=== PATIENT | male | born 1960 | race Caucasian/White ===

== ENCOUNTER 2020-11-18 18:07 | Inpatient (IN) ==
[2020-11-18 18:34] LABS: ABS Lymphocytes 0.9 10^3/ul (1.0-4.8); ABS Monocytes 0.3 10^3/ul (0-0.8); ABS Neutrophils 3.8 10^3/ul (1.5-7.7); Hematocrit 38 % (42-52); Hemoglobin 13.2 g/dL (14.0-18.0); Lymphocyte % 18.3 %; Mean Corpuscular HGB Conc 35 g/dL (31-36); Mean Corpuscular Hemoglobin 28 pg (27-31); Mean Corpuscular Volume 81 fL (80-94); Mean Platelet Volume 6.5 fL (7.4-10.4); Platelet Count 227 10^3/uL (150-450); Red Blood Count 4.66 10^6 /uL (4.18-5.48); Red Cell Distribution Width 14 % (10-15); White Blood Count 5.1 10^3/uL (3.5-10.8)
[2020-11-18 18:51] LABS: ALT 36 U/L (7-52); AST 96 U/L (13-39); Albumin 3.7 g/dL (3.2-5.2); Albumin/Globulin Ratio 1.3 (1-3); Alkaline Phosphatase 53 U/L (35-149); Anion Gap 10 mmol/L (2-11); Blood Urea Nitrogen 21 mg/dL (6-24); CO2 Carbon Dioxide 25 mmol/L (22-32); Calcium 8.2 mg/dL (8.6-10.3); Chloride 97 mmol/L (101-111); EGFR African American 72.4 (>60); EGFR Non-African American 59.8 (>60); Globulin 2.9 g/dL (2-4); Glucose 125 mg/dL (70-100); Magnesium 1.7 mg/dL (1.9-2.7); Potassium 3.8 mmol/L (3.5-5.0); Sodium 132 mmol/L (135-145); Total Protein 6.6 g/dL (6.4-8.9)
[2020-11-18 18:59] LABS: Activated Partial Thrombo Time 28.7 seconds (26.0-38.0); INR 1.16 (0.86-1.15)
[2020-11-18 19:00] LABS: Troponin I 0.03 ng/mL (<0.03)
[2020-11-18 20:13] LABS: Hepatitis C Antibody Negative (Negative)
[2020-11-18] MEDS ORDERED: methylPREDNISolone 125 mg 2 ML VIAL IV ONE (20:18)
[2020-11-18 20:42] LABS: PCO2 Arterial 36 mmHg (35-45); PO2 Arterial 80 mmHg (80-100)
[2020-11-18] MEDS ORDERED: Ondansetron 4 mg VIAL 2 MG/ML 2 ml VIAL IV PRN (20:53)
[2020-11-18] MEDS ORDERED: Magnesium Sulfate 2 gm BAG 2 GM/50 ML BAG IVPB ONE (20:53)
[2020-11-18 22:07] LABS: Influenza A Molecular Negative (Negative); Influenza B Molecular Negative (Negative)
[2020-11-18] MEDS ORDERED: Iodixanol (CONTRAST) 320 MG/ML 100 ML SDV IV ONE (22:39)
[2020-11-18] MEDS: Mometasone/Formoter 100/5 MDI INH SCH (23:24)
[2020-11-18] MEDS: Heparin 5000 UNITS/ML 1 mL VIAL SUBCUT SCH (23:28)
[2020-11-18] MEDS: Azithromycin 500 mg/250 ml NS 500 MG/250 ML BAG IVPB SCH (23:28)
[2020-11-18] MEDS: cefTRIAXone 1 gm/50 mL NS BAG 1 GM/50 ML BAG IVPB SCH (23:28)
[2020-11-18] MEDS: methylPREDNISolone 125 mg 2 ML VIAL IV SCH (23:28)
[2020-11-19 01:32] LABS: Troponin I 0.03 ng/mL (<0.03)
[2020-11-19 03:39] LABS: Anion Gap 12 mmol/L (2-11); Blood Urea Nitrogen 21 mg/dL (6-24); CO2 Carbon Dioxide 21 mmol/L (22-32); Chloride 98 mmol/L (101-111); EGFR Non-African American 70.3 (>60); Glucose 204 mg/dL (70-100); Potassium 3.5 mmol/L (3.5-5.0); Sodium 131 mmol/L (135-145)
[2020-11-19 03:42] LABS: Troponin I 0.03 ng/mL (<0.03)
[2020-11-19] MEDS: Heparin 5000 UNITS/ML 1 mL VIAL SUBCUT SCH ×2 (05:32→12:28)
[2020-11-19] MEDS: methylPREDNISolone 125 mg 2 ML VIAL IV SCH ×3 (05:33→21:01)
[2020-11-19 06:11] LABS: ABS Lymphocytes 0.5 10^3/ul (1.0-4.8); ABS Monocytes 0.2 10^3/ul (0-0.8); ABS Neutrophils 3.8 10^3/ul (1.5-7.7); Hematocrit 38 % (42-52); Hemoglobin 12.9 g/dL (14.0-18.0); Mean Corpuscular HGB Conc 35 g/dL (31-36); Mean Corpuscular Hemoglobin 28 pg (27-31); Mean Corpuscular Volume 82 fL (80-94); Mean Platelet Volume 6.7 fL (7.4-10.4); Platelet Count 210 10^3/uL (150-450); Red Blood Count 4.58 10^6 /uL (4.18-5.48); Red Cell Distribution Width 14 % (10-15); White Blood Count 4.5 10^3/uL (3.5-10.8)
[2020-11-19 06:30] LABS: INR 1.12 (0.86-1.15)
[2020-11-19 06:36] LABS: Troponin I 0.03 ng/mL (<0.03)
[2020-11-19 07:01] LABS: Urine Appearance Cloudy; Urine Bilirubin Negative (Negative); Urine Blood Negative (Negative); Urine Color Amber; Urine Glucose Negative (Negative); Urine Ketones Trace (Negative); Urine Nitrite Negative (Negative); Urine Protein 2+(100 mg/dL) (Negative); Urine Specific Gravity 1.034 (1.002-1.030); Urine Urobilinogen Negative (Negative)
[2020-11-19 07:23] LABS: Urine Bacteria Absent (Absent); Urine Red Blood Cell Trace(0-2/hpf) (Absent); Urine Squamous Epithelial Cell Present (Absent); Urine White Blood Cell 1+(6-10/hpf) (Absent)
[2020-11-19 08:21] LABS: Magnesium 1.9 mg/dL (1.9-2.7); Phosphorus 3.8 mg/dL (2.5-5.0)
[2020-11-19] MEDS ORDERED: Buffered Lidocaine 1% SYRIN 1 ml INTRADERM ONE (08:45)
[2020-11-19] MEDS: KCL 20 MEQ/100 ML IVPREMIX 20 MEQ/100 ML BAG IV SCH ×2 (09:09→12:13)
[2020-11-19 09:28] LABS: Glucose 203 mg/dL (70-100)
[2020-11-19] MEDS: Mometasone/Formoter 100/5 MDI INH SCH ×2 (10:54→19:37)
[2020-11-19 15:09] LABS: HIV 4th Generation Nonreactive (Nonreactive)
[2020-11-19] MEDS ORDERED: Remdesivir 100 mg Vial 200 MG in NS 0.9% 250 ml 210 ML IV ONE (16:19)
[2020-11-19] MEDS ORDERED: Tocilizumab 200 MG/10 ML 10 ml VIAL IVPB ONE (16:19)
[2020-11-19] MEDS ORDERED: Tocilizumab** 800 MG in NS 0.9% 100 ml BAG 60 ML IVPB ONE (16:30)
[2020-11-19] MEDS: Enoxaparin 80 MG/0.8 ML SYR SUBCUT SCH (17:34)
[2020-11-19 18:52] LABS: Albumin 3.4 g/dL (3.2-5.2); Albumin/Globulin Ratio 1.2 (1-3); Calcium 8.4 mg/dL (8.6-10.3); EGFR African American 103.8 (>60); EGFR Non-African American 85.8 (>60); Globulin 2.8 g/dL (2-4); Potassium 4.2 mmol/L (3.5-5.0); Total Bilirubin 0.5 mg/dL (0.2-1.0); Total Protein 6.2 g/dL (6.4-8.9)
[2020-11-19 18:56] LABS: INR 1.08 (0.86-1.15)
[2020-11-19] MEDS: cefTRIAXone 1 gm/50 mL NS BAG 1 GM/50 ML BAG IVPB SCH (19:58)
[2020-11-19] MEDS: Azithromycin 500 mg/250 ml NS 500 MG/250 ML BAG IVPB SCH (19:58)
[2020-11-19 22:16] LABS: Urine Appearance Cloudy; Urine Bilirubin Negative (Negative); Urine Blood Negative (Negative); Urine Color Yellow; Urine Glucose Negative (Negative); Urine Ketones Trace (Negative); Urine Nitrite Negative (Negative); Urine Protein 2+(100 mg/dL) (Negative); Urine Specific Gravity 1.032 (1.002-1.030); Urine Urobilinogen Negative (Negative)
[2020-11-19 22:21] LABS: Urine Bacteria Absent (Absent); Urine Red Blood Cell Trace(0-2/hpf) (Absent); Urine Squamous Epithelial Cell Present (Absent); Urine White Blood Cell Trace(0-5/hpf) (Absent)
[2020-11-20] MEDS: Enoxaparin 80 MG/0.8 ML SYR SUBCUT SCH ×2 (06:02→17:57)
[2020-11-20] MEDS: methylPREDNISolone 125 mg 2 ML VIAL IV SCH ×3 (06:03→21:38)
[2020-11-20 06:25] LABS: ABS Lymphocytes 0.8 10^3/ul (1.0-4.8); ABS Monocytes 0.6 10^3/ul (0-0.8); ABS Neutrophils 7.3 10^3/ul (1.5-7.7); Hematocrit 38 % (42-52); Hemoglobin 13.1 g/dL (14.0-18.0); Mean Corpuscular HGB Conc 34 g/dL (31-36); Mean Corpuscular Hemoglobin 28 pg (27-31); Mean Corpuscular Volume 83 fL (80-94); Mean Platelet Volume 6.8 fL (7.4-10.4); Nucleated Red Blood Cells % 0.1; Platelet Count 336 10^3/uL (150-450); Red Blood Count 4.61 10^6 /uL (4.18-5.48); Red Cell Distribution Width 14 % (10-15); White Blood Count 8.7 10^3/uL (3.5-10.8)
[2020-11-20 06:34] LABS: INR 1.11 (0.86-1.15)
[2020-11-20 06:44] LABS: Albumin 3.3 g/dL (3.2-5.2); Albumin/Globulin Ratio 1.1 (1-3); Calcium 8.2 mg/dL (8.6-10.3); EGFR African American 102.5 (>60); EGFR Non-African American 84.7 (>60); Magnesium 2.3 mg/dL (1.9-2.7); Phosphorus 3.2 mg/dL (2.5-5.0); Potassium 3.9 mmol/L (3.5-5.0); Total Bilirubin 0.4 mg/dL (0.2-1.0); Total Protein 6.3 g/dL (6.4-8.9)
[2020-11-20] MEDS: Mometasone/Formoter 100/5 MDI INH SCH ×2 (07:48→20:27)
[2020-11-20] MEDS: Albuterol HFA INHALER 8 gm MDI INH PRN (07:48)
[2020-11-20] MEDS: cefTRIAXone 1 gm/50 mL NS BAG 1 GM/50 ML BAG IVPB SCH (20:45)
[2020-11-20] MEDS: Azithromycin 500 mg/250 ml NS 500 MG/250 ML BAG IVPB SCH (20:45)
[2020-11-20] MEDS: Remdesivir 100 mg Vial 100 MG in NS 0.9% 250 ml 230 ML IV SCH (21:38)
[2020-11-21 04:45] LABS: ABS Lymphocytes 0.6 10^3/ul (1.0-4.8); ABS Monocytes 0.6 10^3/ul (0-0.8); ABS Neutrophils 7.7 10^3/ul (1.5-7.7); Hematocrit 37 % (42-52); Hemoglobin 12.5 g/dL (14.0-18.0); Lymphocyte % 7.1 %; Mean Corpuscular HGB Conc 34 g/dL (31-36); Mean Corpuscular Hemoglobin 28 pg (27-31); Mean Corpuscular Volume 84 fL (80-94); Mean Platelet Volume 6.4 fL (7.4-10.4); Nucleated Red Blood Cells % 0.1; Platelet Count 329 10^3/uL (150-450); Red Cell Distribution Width 14 % (10-15)
[2020-11-21 04:52] LABS: INR 1.2 (0.86-1.15)
[2020-11-21 04:59] LABS: Albumin 3.1 g/dL (3.2-5.2); Albumin/Globulin Ratio 1.1 (1-3); Calcium 8.1 mg/dL (8.6-10.3); EGFR African American 96.4 (>60); EGFR Non-African American 79.6 (>60); Globulin 2.7 g/dL (2-4); Magnesium 2.4 mg/dL (1.9-2.7); Phosphorus 2.8 mg/dL (2.5-5.0); Total Bilirubin 0.5 mg/dL (0.2-1.0); Total Protein 5.8 g/dL (6.4-8.9)
[2020-11-21] MEDS: Enoxaparin 80 MG/0.8 ML SYR SUBCUT SCH ×2 (05:50→17:12)
[2020-11-21] MEDS: methylPREDNISolone 125 mg 2 ML VIAL IV SCH ×3 (05:51→21:35)
[2020-11-21] MEDS: Mometasone/Formoter 100/5 MDI INH SCH (07:19)
[2020-11-21] MEDS ORDERED: Furosemide 40 mg/4 ml IV VIAL IV ONE (08:31)
[2020-11-21] MEDS ORDERED: Lorazepam PYXIS KEY PRN (08:51)
[2020-11-21] MEDS ORDERED: LORazepam 2 mg VIAL 1 ml IV PUSH ONE (08:52)
[2020-11-21] MEDS: Azithromycin 500 mg/250 ml NS 500 MG/250 ML BAG IVPB SCH (21:30)
[2020-11-21] MEDS: cefTRIAXone 1 gm/50 mL NS BAG 1 GM/50 ML BAG IVPB SCH (21:30)
[2020-11-21] MEDS: Remdesivir 100 mg Vial 100 MG in NS 0.9% 250 ml 230 ML IV SCH (22:53)
[2020-11-22] MEDS: Enoxaparin 80 MG/0.8 ML SYR SUBCUT SCH ×2 (06:15→16:19)
[2020-11-22] MEDS: methylPREDNISolone 125 mg 2 ML VIAL IV SCH (06:15)
[2020-11-22 06:48] LABS: ABS Lymphocytes 0.5 10^3/ul (1.0-4.8); ABS Monocytes 0.7 10^3/ul (0-0.8); Hematocrit 37 % (42-52); Hemoglobin 12.8 g/dL (14.0-18.0); Lymphocyte % 5.6 %; Mean Corpuscular HGB Conc 35 g/dL (31-36); Mean Corpuscular Hemoglobin 29 pg (27-31); Mean Corpuscular Volume 83 fL (80-94); Mean Platelet Volume 6.5 fL (7.4-10.4); Platelet Count 374 10^3/uL (150-450); Red Blood Count 4.47 10^6 /uL (4.18-5.48); Red Cell Distribution Width 14 % (10-15); White Blood Count 9.2 10^3/uL (3.5-10.8)
[2020-11-22 07:04] LABS: INR 1.25 (0.86-1.15)
[2020-11-22 07:08] LABS: Albumin 3.1 g/dL (3.2-5.2); Albumin/Globulin Ratio 1.2 (1-3); Calcium 8.1 mg/dL (8.6-10.3); EGFR African American 87.9 (>60); EGFR Non-African American 72.6 (>60); Globulin 2.6 g/dL (2-4); Magnesium 2.4 mg/dL (1.9-2.7); Phosphorus 3.3 mg/dL (2.5-5.0); Potassium 3.7 mmol/L (3.5-5.0); Total Bilirubin 0.5 mg/dL (0.2-1.0); Total Protein 5.7 g/dL (6.4-8.9)
[2020-11-22] MEDS ORDERED: KCL 20 MEQ/100 ML IVPREMIX 20 MEQ/100 ML BAG ONE (08:38)
[2020-11-22] MEDS: KCL 20 MEQ/100 ML IVPREMIX 20 MEQ/100 ML BAG IV SCH ×2 (08:40→10:45)
[2020-11-22] MEDS: Fluticasone NASAL SPRAY 50MCG 16 gm SPRAY BTL BOTH NARES SCH (08:53)
[2020-11-22] MEDS: Mometasone/Formoter 100/5 MDI INH SCH ×3 (08:53→19:46)
[2020-11-22] MEDS: Albuterol HFA INHALER 8 gm MDI INH PRN (09:06)
[2020-11-22] MEDS: methylPREDNISolone SOD 40 mg/ml 1 ml VIAL IV SCH ×2 (14:00→22:20)
[2020-11-22] MEDS: cefTRIAXone 1 gm/50 mL NS BAG 1 GM/50 ML BAG IVPB SCH (20:03)
[2020-11-22] MEDS: Azithromycin 500 mg/250 ml NS 500 MG/250 ML BAG IVPB SCH (20:03)
[2020-11-22] MEDS ORDERED: Furosemide 40 mg/4 ml IV VIAL IV SLOW PU ONE (21:29)
[2020-11-22] MEDS: Remdesivir 100 mg Vial 100 MG in NS 0.9% 250 ml 230 ML IV SCH (21:31)
[2020-11-23] MEDS: Enoxaparin 80 MG/0.8 ML SYR SUBCUT SCH ×2 (05:50→17:06)
[2020-11-23] MEDS: methylPREDNISolone SOD 40 mg/ml 1 ml VIAL IV SCH ×3 (05:50→21:30)
[2020-11-23 06:15] LABS: ABS Lymphocytes 0.5 10^3/ul (1.0-4.8); ABS Monocytes 0.6 10^3/ul (0-0.8); ABS Neutrophils 8.1 10^3/ul (1.5-7.7); Hematocrit 38 % (42-52); Hemoglobin 12.8 g/dL (14.0-18.0); Mean Corpuscular HGB Conc 34 g/dL (31-36); Mean Corpuscular Hemoglobin 28 pg (27-31); Mean Corpuscular Volume 83 fL (80-94); Mean Platelet Volume 6.6 fL (7.4-10.4); Platelet Count 354 10^3/uL (150-450); Red Blood Count 4.55 10^6 /uL (4.18-5.48); Red Cell Distribution Width 14 % (10-15); White Blood Count 9.2 10^3/uL (3.5-10.8)
[2020-11-23 06:17] LABS: INR 1.25 (0.86-1.15)
[2020-11-23 06:27] LABS: Albumin 3.1 g/dL (3.2-5.2); Magnesium 2.5 mg/dL (1.9-2.7); Potassium 4.3 mmol/L (3.5-5.0); Total Bilirubin 0.5 mg/dL (0.2-1.0)
[2020-11-23 06:33] LABS: Albumin/Globulin Ratio 1.4 (1-3); EGFR African American 83.2 (>60); EGFR Non-African American 68.8 (>60); Globulin 2.2 g/dL (2-4); Phosphorus 3.7 mg/dL (2.5-5.0); Total Protein 5.3 g/dL (6.4-8.9)
[2020-11-23] MEDS: Fluticasone NASAL SPRAY 50MCG 16 gm SPRAY BTL BOTH NARES SCH (08:30)
[2020-11-23] MEDS: Mometasone/Formoter 100/5 MDI INH SCH ×2 (08:30→19:32)
[2020-11-23] MEDS: cefTRIAXone 1 gm/50 mL NS BAG 1 GM/50 ML BAG IVPB SCH (19:50)
[2020-11-23] MEDS: Azithromycin 500 mg/250 ml NS 500 MG/250 ML BAG IVPB SCH (21:30)
[2020-11-24] MEDS: Enoxaparin 80 MG/0.8 ML SYR SUBCUT SCH ×2 (05:52→15:16)
[2020-11-24] MEDS: methylPREDNISolone SOD 40 mg/ml 1 ml VIAL IV SCH ×3 (05:52→22:49)
[2020-11-24 06:21] LABS: ABS Eosinophils 0.1 10^3/ul (0-0.6); ABS Lymphocytes 0.5 10^3/ul (1.0-4.8); ABS Monocytes 0.5 10^3/ul (0-0.8); Eosinophil % 0.7 %; Hematocrit 39 % (42-52); Hemoglobin 12.9 g/dL (14.0-18.0); Lymphocyte % 4.9 %; Mean Corpuscular HGB Conc 34 g/dL (31-36); Mean Corpuscular Hemoglobin 28 pg (27-31); Mean Corpuscular Volume 84 fL (80-94); Mean Platelet Volume 6.5 fL (7.4-10.4); Nucleated Red Blood Cells % 0.1; Platelet Count 354 10^3/uL (150-450); Red Blood Count 4.57 10^6 /uL (4.18-5.48); Red Cell Distribution Width 14 % (10-15)
[2020-11-24 06:53] LABS: EGFR African American 89.8 (>60); EGFR Non-African American 74.2 (>60); Potassium 4.3 mmol/L (3.5-5.0)
[2020-11-24] MEDS: Fluticasone NASAL SPRAY 50MCG 16 gm SPRAY BTL BOTH NARES SCH (08:14)
[2020-11-24] MEDS: Mometasone/Formoter 100/5 MDI INH SCH ×2 (08:23→20:41)
[2020-11-24 10:22] LABS: PCO2 Arterial 42 mmHg (35-45); PO2 Arterial 70 mmHg (80-100)
[2020-11-24] MEDS ORDERED: Furosemide 40 mg/4 ml IV VIAL IV SLOW PU ONE (15:23)
[2020-11-24] MEDS: cefTRIAXone 1 gm/50 mL NS BAG 1 GM/50 ML BAG IVPB SCH (20:20)
[2020-11-24] MEDS: Azithromycin 500 mg/250 ml NS 500 MG/250 ML BAG IVPB SCH (21:25)
[2020-11-24] MEDS: Saline FLUSH-CENTRAL 10 ML SYRINGE CENT\\PICC SCH (22:49)
[2020-11-25] MEDS: methylPREDNISolone SOD 40 mg/ml 1 ml VIAL IV SCH ×4 (06:19→22:29)
[2020-11-25] MEDS: Enoxaparin 80 MG/0.8 ML SYR SUBCUT SCH ×2 (06:19→16:09)
[2020-11-25] MEDS: Mometasone/Formoter 100/5 MDI INH SCH (10:00)
[2020-11-25] MEDS: Fluticasone NASAL SPRAY 50MCG 16 gm SPRAY BTL BOTH NARES SCH (11:54)
[2020-11-25] MEDS: Saline FLUSH-CENTRAL 10 ML SYRINGE CENT\\PICC SCH ×2 (11:54→23:34)
[2020-11-25] MEDS ORDERED: Rocuronium 50 mg VIAL 10 mg/ml 5 ml VIAL (50 mg) ONE ×2 (12:26→14:12)
[2020-11-25] MEDS ORDERED: Succinylcholine 200 mg VIAL 20 mg/ml 10 ml VIAL (200 mg) ONE (12:26)
[2020-11-25] MEDS ORDERED: Etomidate 40 mg/20 ml (2 MG/ML) 20 ml VIAL (40 mg) ONE (12:50)
[2020-11-25] MEDS ORDERED: Propofol 10 MG/ML 20 ML BTL ONE (12:50)
[2020-11-25] MEDS ORDERED: Propofol 10 mg/ml 100 ML BTL 100 ML ONE (13:01)
[2020-11-25] MEDS: Propofol 10 mg/ml 100 ML BTL 100 ML IV SCH ×7 (13:10→23:00)
[2020-11-25] MEDS ORDERED: fentaNYL 100 mcg/2 ml 50 MCG/ML VIAL ONE (13:35)
[2020-11-25] MEDS ORDERED: fentaNYL 100 mcg/2 ml 50 MCG/ML VIAL IV SLOW PU ONE ×2 (13:37→13:43)
[2020-11-25] MEDS ORDERED: Lorazepam PYXIS KEY ONE (13:47)
[2020-11-25] MEDS ORDERED: LORazepam 2 mg VIAL 1 ml ONE ×2 (13:47→14:10)
[2020-11-25] MEDS ORDERED: LORazepam 2 mg VIAL 1 ml IV PUSH ONE ×2 (13:52→16:27)
[2020-11-25] MEDS: fentaNYL INFUSION 50 mcg/mL VL 2,500 MCG/50 ML VIAL IV SCH ×2 (13:58→19:40)
[2020-11-25] MEDS: Norepinephrine 16MCG/ML IVPRE 4,000 MCG/250 ML BAG IV SCH ×2 (14:20→20:34)
[2020-11-25] MEDS: [UNRECOGNIZED DRUG - OTHER] PO SCH (15:58)
[2020-11-25] MEDS: Chlorhexidine MOUTHWASH 0.12% 15 ML UDC TOPICAL SCH ×3 (15:58→22:29)
[2020-11-25 16:15] LABS: PCO2 Arterial 66 mmHg (35-45); PO2 Arterial 89 mmHg (80-100)
[2020-11-25] MEDS ORDERED: Rocuronium 50 mg VIAL 10 mg/ml 5 ml VIAL (50 mg) IV ONE (16:27)
[2020-11-25 20:03] LABS: PCO2 Arterial 62 mmHg (35-45); PO2 Arterial 113 mmHg (80-100)
[2020-11-25] MEDS: cefTRIAXone 1 gm/50 mL NS BAG 1 GM/50 ML BAG IVPB SCH (20:04)
[2020-11-25] MEDS: Pantoprazole VIAL 40 MG VIAL IV SCH (20:44)
[2020-11-25] MEDS: Azithromycin 500 mg/250 ml NS 500 MG/250 ML BAG IVPB SCH (21:11)
[2020-11-25] MEDS ORDERED: Cisatracurium 100 MG in NS 0.9% 250 ml 200 ML IV SCH (23:00)
[2020-11-26] MEDS: Cisatracurium 100 MG in NS 0.9% 250 ml 200 ML IV SCH ×2 (00:14→09:47)
[2020-11-26] MEDS: Propofol 10 mg/ml 100 ML BTL 100 ML IV SCH ×15 (01:27→23:45)
[2020-11-26] MEDS: [UNRECOGNIZED DRUG - OTHER] PO SCH ×2 (03:32→15:00)
[2020-11-26] MEDS: Chlorhexidine MOUTHWASH 0.12% 15 ML UDC TOPICAL SCH ×7 (03:32→21:53)
[2020-11-26 04:00] LABS: PO2 Arterial 128 mmHg (80-100)
[2020-11-26 04:03] LABS: PCO2 Arterial 94 mmHg (35-45)
[2020-11-26] MEDS ORDERED: Rocuronium 50 mg VIAL 10 mg/ml 5 ml VIAL (50 mg) IV ONE (04:54)
[2020-11-26] MEDS: Enoxaparin 80 MG/0.8 ML SYR SUBCUT SCH ×2 (05:04→17:50)
[2020-11-26] MEDS: methylPREDNISolone SOD 40 mg/ml 1 ml VIAL IV SCH ×3 (05:07→20:23)
[2020-11-26 05:18] LABS: Hematocrit 40 % (42-52); Hemoglobin 13.6 g/dL (14.0-18.0); Mean Corpuscular HGB Conc 34 g/dL (31-36); Mean Corpuscular Hemoglobin 29 pg (27-31); Mean Corpuscular Volume 85 fL (80-94); Mean Platelet Volume 6.6 fL (7.4-10.4); Platelet Count 348 10^3/uL (150-450); Red Blood Count 4.73 10^6 /uL (4.18-5.48); Red Cell Distribution Width 14 % (10-15); White Blood Count 16.7 10^3/uL (3.5-10.8)
[2020-11-26 05:38] LABS: Calcium 7.7 mg/dL (8.6-10.3); EGFR Non-African American 65.3 (>60); Phosphorus 6.5 mg/dL (2.5-5.0)
[2020-11-26 05:44] LABS: Myoglobin 102.5 ng/mL (17.4-105.7)
[2020-11-26 06:37] LABS: Magnesium 2.7 mg/dL (1.9-2.7); Potassium 5.1 mmol/L (3.5-5.0)
[2020-11-26] MEDS: fentaNYL INFUSION 50 mcg/mL VL 2,500 MCG/50 ML VIAL IV SCH ×2 (07:01→20:47)
[2020-11-26] MEDS: Fluticasone NASAL SPRAY 50MCG 16 gm SPRAY BTL BOTH NARES SCH (07:38)
[2020-11-26] MEDS: Norepinephrine 16MCG/ML IVPRE 4,000 MCG/250 ML BAG IV SCH (08:26)
[2020-11-26] MEDS: Pantoprazole VIAL 40 MG VIAL IV SCH ×2 (08:36→20:23)
[2020-11-26] MEDS: Saline FLUSH-CENTRAL 10 ML SYRINGE CENT\\PICC SCH ×2 (10:36→20:23)
[2020-11-26 11:45] LABS: PO2 Arterial 101 mmHg (80-100)
[2020-11-26 11:50] LABS: PCO2 Arterial 88 mmHg (35-45)
[2020-11-26] MEDS ORDERED: Furosemide 40 mg/4 ml IV VIAL IV SLOW PU ONE (14:13)
[2020-11-26 20:47] LABS: PO2 Arterial 63 mmHg (80-100)
[2020-11-26 20:48] LABS: PCO2 Arterial 74 mmHg (35-45)
[2020-11-26] MEDS: cefTRIAXone 2 GM ADDV.VIAL 2 GM in NS 0.9% 100 ml BAG 100 ML IV SCH (21:05)
[2020-11-26] MEDS ORDERED: Senna TAB 8.6 mg TAB PO PRN (21:25)
[2020-11-26] MEDS ORDERED: Metoclopramide 5 MG/ML VIAL (10 mg) IV SLOW PU ONE (21:27)
[2020-11-27] MEDS: Propofol 10 mg/ml 100 ML BTL 100 ML IV SCH ×8 (01:16→13:08)
[2020-11-27] MEDS: Chlorhexidine MOUTHWASH 0.12% 15 ML UDC TOPICAL SCH ×6 (01:23→20:41)
[2020-11-27] MEDS: [UNRECOGNIZED DRUG - OTHER] PO SCH ×2 (01:24→14:25)
[2020-11-27] MEDS: Cisatracurium 100 MG in NS 0.9% 250 ml 200 ML IV SCH (02:45)
[2020-11-27 05:08] LABS: ABS Basophils 0.2 10^3/ul (0-0.2); ABS Eosinophils 0.1 10^3/ul (0-0.6); ABS Lymphocytes 0.3 10^3/ul (1.0-4.8); ABS Monocytes 0.7 10^3/ul (0-0.8); Eosinophil % 0.7 %; Hematocrit 38 % (42-52); Hemoglobin 12.6 g/dL (14.0-18.0); Lymphocyte % 1.6 %; Mean Corpuscular HGB Conc 33 g/dL (31-36); Mean Corpuscular Hemoglobin 28 pg (27-31); Mean Corpuscular Volume 85 fL (80-94); Mean Platelet Volume 6.8 fL (7.4-10.4); Nucleated Red Blood Cells % 0.2; Platelet Count 310 10^3/uL (150-450); Red Blood Count 4.47 10^6 /uL (4.18-5.48); Red Cell Distribution Width 14 % (10-15); White Blood Count 16.2 10^3/uL (3.5-10.8)
[2020-11-27 05:16] LABS: Activated Partial Thrombo Time 28.6 seconds (26.0-38.0); INR 1.04 (0.86-1.15)
[2020-11-27 05:28] LABS: ALT 25 U/L (7-52); Albumin/Globulin Ratio 1.3 (1-3); Alkaline Phosphatase 66 U/L (35-149); Blood Urea Nitrogen 36 mg/dL (6-24); CO2 Carbon Dioxide 30 mmol/L (22-32); Calcium 7.9 mg/dL (8.6-10.3); Chloride 99 mmol/L (101-111); EGFR African American 49.2 (>60); EGFR Non-African American 40.6 (>60); Globulin 2.3 g/dL (2-4); Glucose 265 mg/dL (70-100); Phosphorus 5.7 mg/dL (2.5-5.0); Sodium 135 mmol/L (135-145); Total Protein 5.3 g/dL (6.4-8.9)
[2020-11-27 06:01] LABS: Anion Gap 6 mmol/L (2-11)
[2020-11-27] MEDS: Enoxaparin 80 MG/0.8 ML SYR SUBCUT SCH ×2 (06:59→17:22)
[2020-11-27] MEDS ORDERED: Methylnaltrexone SQ (NF) 12 MG/0.6 ML VIAL SUBCUT ONE (08:00)
[2020-11-27 09:04] LABS: Myoglobin 164.9 ng/mL (17.4-105.7)
[2020-11-27] MEDS: methylPREDNISolone SOD 40 mg/ml 1 ml VIAL IV SCH ×2 (09:23→20:17)
[2020-11-27] MEDS: Polyethylene Glycol 3350 17 GM PACKET PO SCH (09:23)
[2020-11-27] MEDS ORDERED: Sodium Bicarbonate 8.4% SYR 50 ml SYRINGE ONE ×2 (09:36→17:41)
[2020-11-27] MEDS: Saline FLUSH-CENTRAL 10 ML SYRINGE CENT\\PICC SCH (09:45)
[2020-11-27] MEDS: Pantoprazole VIAL 40 MG VIAL IV SCH ×2 (09:45→20:18)
[2020-11-27 09:46] LABS: PCO2 Arterial 61 mmHg (35-45); PO2 Arterial 65 mmHg (80-100)
[2020-11-27] MEDS ORDERED: Sodium Bicarbonate 8.4% SYR 50 ml SYRINGE IV ONE ×2 (11:06→18:32)
[2020-11-27 11:39] LABS: ABS Eosinophils 0.2 10^3/ul (0-0.6); ABS Lymphocytes 0.3 10^3/ul (1.0-4.8); ABS Monocytes 0.8 10^3/ul (0-0.8); ABS Neutrophils 14.7 10^3/ul (1.5-7.7); Eosinophil % 1.5 %; Hematocrit 37 % (42-52); Hemoglobin 12.6 g/dL (14.0-18.0); Mean Corpuscular HGB Conc 34 g/dL (31-36); Mean Corpuscular Hemoglobin 29 pg (27-31); Mean Corpuscular Volume 85 fL (80-94); Platelet Count 299 10^3/uL (150-450); Red Blood Count 4.41 10^6 /uL (4.18-5.48); Red Cell Distribution Width 14 % (10-15); White Blood Count 16.1 10^3/uL (3.5-10.8)
[2020-11-27 12:12] LABS: CO2 Carbon Dioxide 34 mmol/L (22-32); Calcium 7.7 mg/dL (8.6-10.3); Chloride 99 mmol/L (101-111); Sodium 137 mmol/L (135-145)
[2020-11-27 12:18] LABS: Blood Urea Nitrogen 38 mg/dL (6-24); EGFR Non-African American 35.6 (>60); Glucose 214 mg/dL (70-100)
[2020-11-27] MEDS: fentaNYL INFUSION 50 mcg/mL VL 2,500 MCG/50 ML VIAL IV SCH (12:30)
[2020-11-27] MEDS ORDERED: Midazolam 50 MG VIAL IV DRIP 50 ML IV SCH (14:00)
[2020-11-27 14:39] LABS: Potassium, Whole Blood 5.5 mmol/L (3.4-4.5)
[2020-11-27] MEDS: Midazolam 50 MG VIAL IV DRIP 50 ML IV SCH ×3 (14:44→23:08)
[2020-11-27 15:06] LABS: Anion Gap 4 mmol/L (2-11)
[2020-11-27] MEDS: Sodium Bicarbonate 8.4% SYR 50 ml SYRINGE IV ONE ×2 (15:45→20:09)
[2020-11-27] MEDS ORDERED: Dextrose 50% Syringe 50 ml 25 GM/50 ML SYRINGE IV PUSH PRN (16:01)
[2020-11-27] MEDS ORDERED: Dextrose 50% Syringe 50 ml 25 GM/50 ML SYRINGE IV PUSH ONE (16:01)
[2020-11-27 20:13] LABS: PO2 Arterial 86 mmHg (80-100)
[2020-11-27 20:14] LABS: PCO2 Arterial 82 mmHg (35-45)
[2020-11-27 21:06] LABS: ABS Eosinophils 0.1 10^3/ul (0-0.6); ABS Lymphocytes 0.3 10^3/ul (1.0-4.8); ABS Monocytes 0.9 10^3/ul (0-0.8); ABS Neutrophils 12.1 10^3/ul (1.5-7.7); Eosinophil % 0.9 %; Hematocrit 35 % (42-52); Hemoglobin 11.2 g/dL (14.0-18.0); Mean Corpuscular HGB Conc 32 g/dL (31-36); Mean Corpuscular Hemoglobin 27 pg (27-31); Mean Corpuscular Volume 86 fL (80-94); Mean Platelet Volume 6.8 fL (7.4-10.4); Nucleated Red Blood Cells % 0.1; Platelet Count 239 10^3/uL (150-450); Red Blood Count 4.12 10^6 /uL (4.18-5.48); Red Cell Distribution Width 14 % (10-15); White Blood Count 13.4 10^3/uL (3.5-10.8)
[2020-11-27] MEDS: cefTRIAXone 2 GM ADDV.VIAL 2 GM in NS 0.9% 100 ml BAG 100 ML IV SCH (21:06)
[2020-11-27 21:21] LABS: Activated Partial Thrombo Time 24.3 seconds (26.0-38.0); INR 1.01 (0.86-1.15)
[2020-11-27 21:44] LABS: Fibrinogen 135.9 mg/dL (110.8-404.3)
[2020-11-27 21:47] LABS: Calcium 7.9 mg/dL (8.6-10.3); EGFR African American 38.2 (>60); EGFR Non-African American 31.6 (>60)
[2020-11-27 22:07] LABS: Magnesium 3.1 mg/dL (1.9-2.7)
[2020-11-27 22:19] LABS: Potassium 4.9 mmol/L (3.5-5.0)
[2020-11-28] MEDS: Saline FLUSH-CENTRAL 10 ML SYRINGE CENT\\PICC SCH ×3 (00:40→21:34)
[2020-11-28] MEDS: Chlorhexidine MOUTHWASH 0.12% 15 ML UDC TOPICAL SCH ×6 (01:51→21:13)
[2020-11-28] MEDS: [UNRECOGNIZED DRUG - OTHER] PO SCH ×2 (01:52→12:38)
[2020-11-28] MEDS: fentaNYL INFUSION 50 mcg/mL VL 2,500 MCG/50 ML VIAL IV SCH ×2 (02:14→17:59)
[2020-11-28] MEDS: Midazolam 50 MG VIAL IV DRIP 50 ML IV SCH ×4 (04:43→21:38)
[2020-11-28 05:30] LABS: ABS Basophils 0.1 10^3/ul (0-0.2); ABS Eosinophils 0.1 10^3/ul (0-0.6); ABS Lymphocytes 0.2 10^3/ul (1.0-4.8); ABS Monocytes 0.8 10^3/ul (0-0.8); ABS Neutrophils 14.1 10^3/ul (1.5-7.7); Eosinophil % 0.6 %; Hematocrit 33 % (42-52); Hemoglobin 10.8 g/dL (14.0-18.0); Mean Corpuscular HGB Conc 32 g/dL (31-36); Mean Corpuscular Hemoglobin 28 pg (27-31); Mean Corpuscular Volume 86 fL (80-94); Mean Platelet Volume 6.7 fL (7.4-10.4); Nucleated Red Blood Cells % 0.1; Platelet Count 218 10^3/uL (150-450); Red Blood Count 3.88 10^6 /uL (4.18-5.48); Red Cell Distribution Width 14 % (10-15); White Blood Count 15.2 10^3/uL (3.5-10.8)
[2020-11-28] MEDS: Cisatracurium 100 MG in NS 0.9% 250 ml 200 ML IV SCH ×2 (05:47→19:00)
[2020-11-28 05:52] LABS: Albumin 2.8 g/dL (3.2-5.2); Albumin/Globulin Ratio 1.3 (1-3); Calcium 7.7 mg/dL (8.6-10.3); EGFR African American 34.3 (>60); EGFR Non-African American 28.3 (>60); Globulin 2.1 g/dL (2-4); Magnesium 3.1 mg/dL (1.9-2.7); Phosphorus 6.7 mg/dL (2.5-5.0); Total Bilirubin 0.3 mg/dL (0.2-1.0); Total Protein 4.9 g/dL (6.4-8.9)
[2020-11-28] MEDS: Pantoprazole VIAL 40 MG VIAL IV SCH ×2 (08:06→21:13)
[2020-11-28] MEDS: Polyethylene Glycol 3350 17 GM PACKET PO SCH (08:06)
[2020-11-28] MEDS: methylPREDNISolone SOD 40 mg/ml 1 ml VIAL IV SCH (09:18)
[2020-11-28] MEDS: cefTRIAXone 2 GM ADDV.VIAL 2 GM in NS 0.9% 100 ml BAG 100 ML IV SCH (21:33)
[2020-11-29] MEDS: Chlorhexidine MOUTHWASH 0.12% 15 ML UDC TOPICAL SCH ×6 (02:03→21:25)
[2020-11-29] MEDS: [UNRECOGNIZED DRUG - OTHER] PO SCH ×2 (02:03→14:35)
[2020-11-29] MEDS: Midazolam 50 MG VIAL IV DRIP 50 ML IV SCH ×4 (03:53→21:05)
[2020-11-29 04:50] LABS: ABS Basophils 0.1 10^3/ul (0-0.2); ABS Eosinophils 0.2 10^3/ul (0-0.6); ABS Lymphocytes 0.3 10^3/ul (1.0-4.8); ABS Monocytes 0.7 10^3/ul (0-0.8); ABS Neutrophils 18.4 10^3/ul (1.5-7.7); Hematocrit 31 % (42-52); Hemoglobin 10.3 g/dL (14.0-18.0); Lymphocyte % 1.3 %; Mean Corpuscular HGB Conc 33 g/dL (31-36); Mean Corpuscular Hemoglobin 28 pg (27-31); Mean Corpuscular Volume 85 fL (80-94); Mean Platelet Volume 7.4 fL (7.4-10.4); PCO2 Arterial 68 mmHg (35-45); PO2 Arterial 82 mmHg (80-100); Platelet Count 197 10^3/uL (150-450); Red Blood Count 3.68 10^6 /uL (4.18-5.48); Red Cell Distribution Width 15 % (10-15); White Blood Count 19.6 10^3/uL (3.5-10.8)
[2020-11-29 05:06] LABS: Albumin 2.9 g/dL (3.2-5.2); Albumin/Globulin Ratio 1.4 (1-3); Calcium 8.1 mg/dL (8.6-10.3); EGFR Non-African American 20.7 (>60); Globulin 2.1 g/dL (2-4); Magnesium 3.5 mg/dL (1.9-2.7); Potassium 4.7 mmol/L (3.5-5.0); Total Bilirubin 0.3 mg/dL (0.2-1.0)
[2020-11-29] MEDS: fentaNYL INFUSION 50 mcg/mL VL 2,500 MCG/50 ML VIAL IV SCH ×2 (08:21→23:12)
[2020-11-29] MEDS: Cisatracurium 100 MG in NS 0.9% 250 ml 200 ML IV SCH (08:32)
[2020-11-29] MEDS: Polyethylene Glycol 3350 17 GM PACKET PO SCH (08:38)
[2020-11-29] MEDS: Pantoprazole VIAL 40 MG VIAL IV SCH ×2 (08:38→21:25)
[2020-11-29] MEDS: methylPREDNISolone SOD 40 mg/ml 1 ml VIAL IV SCH (08:38)
[2020-11-29] MEDS: Saline FLUSH-CENTRAL 10 ML SYRINGE CENT\\PICC SCH ×2 (08:38→22:33)
[2020-11-29] MEDS ORDERED: Vancomycin 1,000 MG in NS 0.9% 250 ml 250 ML IVPB ONE (09:02)
[2020-11-29 09:36] LABS: Myoglobin 566.1 ng/mL (17.4-105.7)
[2020-11-29] MEDS ORDERED: Vancomycin per Pharmacy 1 EA NOTE FOLLOW UP SCH (10:00)
[2020-11-29] MEDS ORDERED: Vancomycin 2,000 MG in NS 0.9% 500 ml BAG 500 ML IVPB ONE (11:00)
[2020-11-29] MEDS: Cefepime 1 GM in Dextrose 1 GM/50 ML BAG IV SCH ×2 (11:20→22:38)
[2020-11-29] MEDS ORDERED: fentaNYL 100 mcg/2 ml 50 MCG/ML VIAL ONE (11:46)
[2020-11-29 14:38] LABS: PO2 Arterial 86 mmHg (80-100)
[2020-11-29 14:45] LABS: PCO2 Arterial 76 mmHg (35-45)
[2020-11-29 14:55] LABS: Calcium 7.7 mg/dL (8.6-10.3); EGFR African American 21.1 (>60); EGFR Non-African American 17.4 (>60)
[2020-11-29 15:05] LABS: Potassium 5.2 mmol/L (3.5-5.0)
[2020-11-29] MEDS ORDERED: fentaNYL 100 mcg/2 ml 50 MCG/ML VIAL IV SLOW PU ONE (16:21)
[2020-11-29] MEDS ORDERED: Rocuronium 50 mg VIAL 10 mg/ml 5 ml VIAL (50 mg) IV ONE (16:21)
[2020-11-29] MEDS ORDERED: Dextrose 50% Syringe 50 ml 25 GM/50 ML SYRINGE IV PUSH ONE ×3 (16:54→23:59)
[2020-11-29] MEDS ORDERED: Dextrose 50% Syringe 50 ml 25 GM/50 ML SYRINGE IV PUSH PRN (16:54)
[2020-11-29] MEDS ORDERED: SODIUM ZIRCONIUM CYCLOSILICATE 10 GM PACKET PO ONE ×2 (16:55→23:57)
[2020-11-29 22:47] LABS: Venous Bicarbonate HCO3 27.7 mmol/L (24-28)
[2020-11-29 22:53] LABS: Calcium 8.2 mg/dL (8.6-10.3); EGFR African American 19.3 (>60)
[2020-11-29 22:57] LABS: Potassium 5.3 mmol/L (3.5-5.0)
[2020-11-30] MEDS: Cisatracurium 100 MG in NS 0.9% 250 ml 200 ML IV SCH ×2 (01:00→11:43)
[2020-11-30] MEDS: fentaNYL INFUSION 50 mcg/mL VL 2,500 MCG/50 ML VIAL IV SCH ×3 (01:24→22:02)
[2020-11-30] MEDS: [UNRECOGNIZED DRUG - OTHER] PO SCH ×2 (01:46→13:30)
[2020-11-30] MEDS: Chlorhexidine MOUTHWASH 0.12% 15 ML UDC TOPICAL SCH ×6 (01:47→21:02)
[2020-11-30] MEDS: Midazolam 50 MG VIAL IV DRIP 50 ML IV SCH ×4 (03:38→18:20)
[2020-11-30 05:31] LABS: ABS Basophils 0.2 10^3/ul (0-0.2); ABS Eosinophils 0.2 10^3/ul (0-0.6); ABS Lymphocytes 0.4 10^3/ul (1.0-4.8); ABS Monocytes 1.1 10^3/ul (0-0.8); ABS Neutrophils 17.4 10^3/ul (1.5-7.7); Eosinophil % 0.9 %; Hematocrit 30 % (42-52); Hemoglobin 9.8 g/dL (14.0-18.0); Mean Corpuscular HGB Conc 33 g/dL (31-36); Mean Corpuscular Hemoglobin 28 pg (27-31); Mean Corpuscular Volume 86 fL (80-94); Mean Platelet Volume 7.5 fL (7.4-10.4); Platelet Count 153 10^3/uL (150-450); Red Blood Count 3.48 10^6 /uL (4.18-5.48); Red Cell Distribution Width 15 % (10-15); White Blood Count 19.2 10^3/uL (3.5-10.8)
[2020-11-30 05:38] LABS: INR 1.04 (0.86-1.15)
[2020-11-30 05:41] LABS: Calcium 8.2 mg/dL (8.6-10.3); EGFR African American 18.6 (>60); EGFR Non-African American 15.3 (>60); Magnesium 3.9 mg/dL (1.9-2.7); Phosphorus 5.9 mg/dL (2.5-5.0)
[2020-11-30 05:42] LABS: Potassium 5.1 mmol/L (3.5-5.0)
[2020-11-30] MEDS ORDERED: Vancomycin Random Level NOTE FOLLOW UP ONE (06:00)
[2020-11-30 06:18] LABS: Vancomycin Random 13.5 mcg/mL
[2020-11-30] MEDS: methylPREDNISolone SOD 40 mg/ml 1 ml VIAL IV SCH (08:08)
[2020-11-30] MEDS: Pantoprazole VIAL 40 MG VIAL IV SCH ×2 (08:08→21:02)
[2020-11-30] MEDS: Polyethylene Glycol 3350 17 GM PACKET PO SCH (08:09)
[2020-11-30] MEDS: Saline FLUSH-CENTRAL 10 ML SYRINGE CENT\\PICC SCH ×2 (08:09→21:03)
[2020-11-30] MEDS: Cefepime 1 GM in Dextrose 1 GM/50 ML BAG IV SCH ×2 (09:39→21:54)
[2020-11-30] MEDS ORDERED: Dextrose 50% Syringe 50 ml 25 GM/50 ML SYRINGE IV PUSH ONE ×3 (12:15→16:41)
[2020-11-30] MEDS ORDERED: SODIUM ZIRCONIUM CYCLOSILICATE 10 GM PACKET PO ONE ×2 (12:15→16:41)
[2020-11-30] MEDS ORDERED: Vancomycin 1000 MG in NS 0.9% 250 ML IVPB ONE (13:00)
[2020-11-30 15:55] LABS: Venous Bicarbonate HCO3 29.1 mmol/L (24-28)
[2020-11-30 16:11] LABS: Calcium 8.1 mg/dL (8.6-10.3); EGFR African American 17.2 (>60); EGFR Non-African American 14.2 (>60)
[2020-11-30 16:14] LABS: Potassium 5.1 mmol/L (3.5-5.0)
[2020-11-30] MEDS ORDERED: Dextrose 50% Syringe 50 ml 25 GM/50 ML SYRINGE IV PUSH PRN (16:41)
[2020-11-30 19:53] LABS: ABS Basophils 0.1 10^3/ul (0-0.2); ABS Eosinophils 0.1 10^3/ul (0-0.6); ABS Lymphocytes 0.4 10^3/ul (1.0-4.8); ABS Monocytes 0.8 10^3/ul (0-0.8); ABS Neutrophils 16.5 10^3/ul (1.5-7.7); Eosinophil % 0.5 %; Hematocrit 28 % (42-52); Hemoglobin 8.8 g/dL (14.0-18.0); Lymphocyte % 2.4 %; Mean Corpuscular HGB Conc 32 g/dL (31-36); Mean Corpuscular Hemoglobin 28 pg (27-31); Mean Corpuscular Volume 86 fL (80-94); Mean Platelet Volume 8.1 fL (7.4-10.4); Platelet Count 139 10^3/uL (150-450); Red Blood Count 3.22 10^6 /uL (4.18-5.48); Red Cell Distribution Width 15 % (10-15); White Blood Count 17.9 10^3/uL (3.5-10.8)
[2020-11-30] MEDS ORDERED: NORMOSOL-R pH 7.4 1000 mL BAG 1,000 ML IV SCH (20:00)
[2020-11-30] MEDS: Senna TAB 8.6 mg TAB PO SCH (21:02)
[2020-11-30] MEDS: Docusate LIQ 100 MG/10 ML UDC PO SCH (21:02)
[2020-11-30 21:49] LABS: Venous Bicarbonate HCO3 27.5 mmol/L (24-28)
[2020-11-30 21:59] LABS: Calcium 8.2 mg/dL (8.6-10.3); EGFR African American 16.9 (>60); Potassium 4.9 mmol/L (3.5-5.0)
[2020-12-01] MEDS: Midazolam 50 MG VIAL IV DRIP 50 ML IV SCH ×5 (00:29→23:22)
[2020-12-01] MEDS: Cisatracurium 100 MG in NS 0.9% 250 ml 200 ML IV SCH (00:52)
[2020-12-01] MEDS: Chlorhexidine MOUTHWASH 0.12% 15 ML UDC TOPICAL SCH ×6 (01:01→20:48)
[2020-12-01] MEDS: [UNRECOGNIZED DRUG - OTHER] PO SCH ×2 (01:02→20:47)
[2020-12-01] MEDS ORDERED: Methylnaltrexone SQ (NF) 12 MG/0.6 ML VIAL SUBCUT ONE (05:00)
[2020-12-01 06:11] LABS: INR 1.07 (0.86-1.15)
[2020-12-01 06:19] LABS: Calcium 8.2 mg/dL (8.6-10.3); EGFR African American 16.5 (>60); EGFR Non-African American 13.6 (>60); Phosphorus 6.3 mg/dL (2.5-5.0); Potassium 4.7 mmol/L (3.5-5.0)
[2020-12-01 06:30] LABS: Vancomycin Random 16.6 mcg/mL
[2020-12-01] MEDS: Docusate LIQ 100 MG/10 ML UDC PO SCH ×3 (08:06→20:47)
[2020-12-01] MEDS: Polyethylene Glycol 3350 17 GM PACKET PO SCH (08:06)
[2020-12-01] MEDS: Pantoprazole VIAL 40 MG VIAL IV SCH ×2 (08:06→20:46)
[2020-12-01] MEDS: Saline FLUSH-CENTRAL 10 ML SYRINGE CENT\\PICC SCH ×2 (08:09→20:48)
[2020-12-01 08:22] LABS: ABS Basophils 0.1 10^3/ul (0-0.2); ABS Eosinophils 0.1 10^3/ul (0-0.6); ABS Lymphocytes 0.6 10^3/ul (1.0-4.8); ABS Monocytes 1.1 10^3/ul (0-0.8); ABS Neutrophils 14.2 10^3/ul (1.5-7.7); Eosinophil % 0.8 %; Hematocrit 26 % (42-52); Hemoglobin 8.6 g/dL (14.0-18.0); Lymphocyte % 3.5 %; Mean Corpuscular HGB Conc 33 g/dL (31-36); Mean Corpuscular Hemoglobin 28 pg (27-31); Mean Corpuscular Volume 85 fL (80-94); Mean Platelet Volume 7.9 fL (7.4-10.4); Platelet Count 129 10^3/uL (150-450); Red Blood Count 3.04 10^6 /uL (4.18-5.48); Red Cell Distribution Width 15 % (10-15)
[2020-12-01] MEDS: Cefepime 1 GM in Dextrose 1 GM/50 ML BAG IV SCH ×2 (09:35→22:11)
[2020-12-01] MEDS: fentaNYL INFUSION 50 mcg/mL VL 2,500 MCG/50 ML VIAL IV SCH (12:26)
[2020-12-01] MEDS: Artificial Tear OPHTH.OINT 3.5 GM BOTH EYES SCH ×2 (18:15→20:48)
[2020-12-01] MEDS: Senna TAB 8.6 mg TAB PO SCH (20:47)
[2020-12-02] MEDS: Artificial Tear OPHTH.OINT 3.5 GM BOTH EYES SCH ×6 (02:03→21:10)
[2020-12-02] MEDS: Chlorhexidine MOUTHWASH 0.12% 15 ML UDC TOPICAL SCH ×6 (02:05→21:10)
[2020-12-02] MEDS: fentaNYL INFUSION 50 mcg/mL VL 2,500 MCG/50 ML VIAL IV SCH ×2 (03:04→15:56)
[2020-12-02 04:18] LABS: Hematocrit 26 % (42-52); Hemoglobin 8.5 g/dL (14.0-18.0); Mean Corpuscular HGB Conc 32 g/dL (31-36); Mean Corpuscular Hemoglobin 28 pg (27-31); Mean Corpuscular Volume 86 fL (80-94); Mean Platelet Volume 8.1 fL (7.4-10.4); Platelet Count 130 10^3/uL (150-450); Red Blood Count 3.06 10^6 /uL (4.18-5.48); Red Cell Distribution Width 15 % (10-15); White Blood Count 18.2 10^3/uL (3.5-10.8)
[2020-12-02 04:33] LABS: Calcium 8.4 mg/dL (8.6-10.3); EGFR African American 14.1 (>60); EGFR Non-African American 11.6 (>60); Magnesium 3.8 mg/dL (1.9-2.7); Phosphorus 6.8 mg/dL (2.5-5.0); Potassium 4.9 mmol/L (3.5-5.0)
[2020-12-02 04:39] LABS: INR 1.12 (0.86-1.15)
[2020-12-02] MEDS: Midazolam 50 MG VIAL IV DRIP 50 ML IV SCH ×3 (05:02→16:34)
[2020-12-02] MEDS ORDERED: Vancomycin Random Level NOTE FOLLOW UP ONE (06:00)
[2020-12-02] MEDS ORDERED: Lidocaine 1% VIAL 10 MG/ML VIAL ONE (08:26)
[2020-12-02] MEDS: Polyethylene Glycol 3350 17 GM PACKET PO SCH (09:42)
[2020-12-02] MEDS: Cefepime 1 GM in Dextrose 1 GM/50 ML BAG IV SCH (09:43)
[2020-12-02] MEDS: Saline FLUSH-CENTRAL 10 ML SYRINGE CENT\\PICC SCH ×2 (09:43→21:10)
[2020-12-02] MEDS: [UNRECOGNIZED DRUG - OTHER] PO SCH (09:43)
[2020-12-02] MEDS: Pantoprazole VIAL 40 MG VIAL IV SCH ×2 (09:43→21:10)
[2020-12-02] MEDS: Docusate LIQ 100 MG/10 ML UDC PO SCH ×2 (09:43→13:38)
[2020-12-02] MEDS: Heparin 1,000 UNIT/ML 10 ml (10,000 UNITS) CATHLAB/DIALYSIS DIALYSIS PRN ×3 (09:54→11:42)
[2020-12-02] MEDS ORDERED: Vancomycin 1000 MG in NS 0.9% 250 ML IVPB ONE (13:00)
[2020-12-02] MEDS: Heparin 5000 UNITS/ML 1 mL VIAL SUBCUT SCH ×2 (13:38→21:10)
[2020-12-02] MEDS: Cefepime 1 GM in NS 0.9% 50 ML 50 ML IVPB SCH (21:10)
[2020-12-03] MEDS: Chlorhexidine MOUTHWASH 0.12% 15 ML UDC TOPICAL SCH ×6 (01:24→21:07)
[2020-12-03] MEDS: Artificial Tear OPHTH.OINT 3.5 GM BOTH EYES SCH ×6 (01:24→21:08)
[2020-12-03 04:44] LABS: Hematocrit 25 % (42-52); Hemoglobin 8.3 g/dL (14.0-18.0); Mean Corpuscular HGB Conc 33 g/dL (31-36); Mean Corpuscular Hemoglobin 28 pg (27-31); Mean Corpuscular Volume 86 fL (80-94); Mean Platelet Volume 8.6 fL (7.4-10.4); Platelet Count 112 10^3/uL (150-450); Red Blood Count 2.92 10^6 /uL (4.18-5.48); Red Cell Distribution Width 16 % (10-15); White Blood Count 16.2 10^3/uL (3.5-10.8)
[2020-12-03 05:09] LABS: Calcium 8.5 mg/dL (8.6-10.3); EGFR African American 13.9 (>60); EGFR Non-African American 11.5 (>60); Magnesium 3.8 mg/dL (1.9-2.7); Phosphorus 8.7 mg/dL (2.5-5.0)
[2020-12-03 05:14] LABS: Potassium 5.3 mmol/L (3.5-5.0)
[2020-12-03] MEDS ORDERED: Vancomycin Random Level NOTE FOLLOW UP ONE (06:00)
[2020-12-03] MEDS: Heparin 5000 UNITS/ML 1 mL VIAL SUBCUT SCH ×3 (06:39→21:07)
[2020-12-03] MEDS: Pantoprazole VIAL 40 MG VIAL IV SCH ×2 (08:07→21:07)
[2020-12-03] MEDS: Polyethylene Glycol 3350 17 GM PACKET PO SCH (08:07)
[2020-12-03] MEDS: fentaNYL INFUSION 50 mcg/mL VL 2,500 MCG/50 ML VIAL IV SCH (08:08)
[2020-12-03] MEDS: Saline FLUSH-CENTRAL 10 ML SYRINGE CENT\\PICC SCH ×2 (08:08→21:07)
[2020-12-03] MEDS: Cefepime 1 GM in NS 0.9% 50 ML 50 ML IVPB SCH (08:30)
[2020-12-03 10:57] LABS: Hepatitis B Surface Antigen Nonreactive (Nonreactive)
[2020-12-03 11:14] LABS: Hepatitis B Surface Ab Not Immune (Immune)
[2020-12-03] MEDS: Heparin 1,000 UNIT/ML 10 ml (10,000 UNITS) CATHLAB/DIALYSIS DIALYSIS PRN ×3 (12:29→15:07)
[2020-12-03] MEDS ORDERED: fentaNYL 100 mcg/2 ml 50 MCG/ML VIAL IV SLOW PU ONE (15:07)
[2020-12-03] MEDS ORDERED: fentaNYL 100 mcg/2 ml 50 MCG/ML VIAL IV SLOW PU PRN (18:10)
[2020-12-04] MEDS: Chlorhexidine MOUTHWASH 0.12% 15 ML UDC TOPICAL SCH ×6 (02:37→21:56)
[2020-12-04] MEDS: Artificial Tear OPHTH.OINT 3.5 GM BOTH EYES SCH ×6 (02:37→21:56)
[2020-12-04 04:59] LABS: Hematocrit 24 % (42-52); Hemoglobin 7.8 g/dL (14.0-18.0); Mean Corpuscular HGB Conc 33 g/dL (31-36); Mean Corpuscular Hemoglobin 28 pg (27-31); Mean Corpuscular Volume 87 fL (80-94); Mean Platelet Volume 8.5 fL (7.4-10.4); Platelet Count 107 10^3/uL (150-450); Red Blood Count 2.74 10^6 /uL (4.18-5.48); Red Cell Distribution Width 16 % (10-15); White Blood Count 11.3 10^3/uL (3.5-10.8)
[2020-12-04 05:29] LABS: Calcium 8.5 mg/dL (8.6-10.3); EGFR African American 14.8 (>60); EGFR Non-African American 12.2 (>60); Magnesium 3.3 mg/dL (1.9-2.7); Phosphorus 7.9 mg/dL (2.5-5.0)
[2020-12-04 05:31] LABS: Potassium 5.1 mmol/L (3.5-5.0)
[2020-12-04] MEDS: Heparin 5000 UNITS/ML 1 mL VIAL SUBCUT SCH ×3 (05:32→21:56)
[2020-12-04] MEDS: Saline FLUSH-CENTRAL 10 ML SYRINGE CENT\\PICC SCH ×2 (08:46→22:08)
[2020-12-04] MEDS: Pantoprazole VIAL 40 MG VIAL IV SCH ×2 (08:46→21:56)
[2020-12-04] MEDS: Polyethylene Glycol 3350 17 GM PACKET PO SCH (08:46)
[2020-12-04] MEDS: Heparin 1,000 UNIT/ML 10 ml (10,000 UNITS) CATHLAB/DIALYSIS DIALYSIS PRN ×4 (11:08→13:59)
[2020-12-05] MEDS: Chlorhexidine MOUTHWASH 0.12% 15 ML UDC TOPICAL SCH ×6 (02:29→21:59)
[2020-12-05] MEDS: Artificial Tear OPHTH.OINT 3.5 GM BOTH EYES SCH ×6 (02:29→22:30)
[2020-12-05 02:45] LABS: Hematocrit 24 % (42-52); Hemoglobin 7.8 g/dL (14.0-18.0); Mean Corpuscular HGB Conc 32 g/dL (31-36); Mean Corpuscular Hemoglobin 28 pg (27-31); Mean Corpuscular Volume 86 fL (80-94); Mean Platelet Volume 7.9 fL (7.4-10.4); Platelet Count 133 10^3/uL (150-450); Red Blood Count 2.78 10^6 /uL (4.18-5.48); Red Cell Distribution Width 16 % (10-15); White Blood Count 13.3 10^3/uL (3.5-10.8)
[2020-12-05 03:03] LABS: Calcium 8.3 mg/dL (8.6-10.3); EGFR African American 16.9 (>60)
[2020-12-05 03:07] LABS: Potassium 5.3 mmol/L (3.5-5.0)
[2020-12-05] MEDS: Heparin 5000 UNITS/ML 1 mL VIAL SUBCUT SCH ×3 (05:15→22:00)
[2020-12-05] MEDS: Polyethylene Glycol 3350 17 GM PACKET PO SCH (07:42)
[2020-12-05] MEDS: Pantoprazole VIAL 40 MG VIAL IV SCH ×2 (07:42→22:00)
[2020-12-05] MEDS: Saline FLUSH-CENTRAL 10 ML SYRINGE CENT\\PICC SCH ×2 (09:31→22:08)
[2020-12-05 11:16] LABS: Urine Appearance Cloudy; Urine Bilirubin Negative (Negative); Urine Blood 3+ (Negative); Urine Color Amber; Urine Glucose 1+(50 mg/dL) (Negative); Urine Ketones Negative (Negative); Urine Nitrite Negative (Negative); Urine Protein 2+(100 mg/dL) (Negative); Urine Specific Gravity 1.017 (1.002-1.030); Urine Urobilinogen Negative (Negative)
[2020-12-05 11:23] LABS: Urine Bacteria Absent (Absent); Urine Red Blood Cell 2+(6-10/hpf) (Absent); Urine Squamous Epithelial Cell Present (Absent); Urine White Blood Cell 2+(11-20/hpf) (Absent)
[2020-12-05] MEDS: SODIUM ZIRCONIUM CYCLOSILICATE 10 GM PACKET PO SCH ×2 (13:29→22:29)
[2020-12-06] MEDS: Artificial Tear OPHTH.OINT 3.5 GM BOTH EYES SCH ×6 (02:57→22:51)
[2020-12-06] MEDS: Chlorhexidine MOUTHWASH 0.12% 15 ML UDC TOPICAL SCH ×6 (02:57→21:11)
[2020-12-06] MEDS: Heparin 5000 UNITS/ML 1 mL VIAL SUBCUT SCH ×3 (06:27→21:12)
[2020-12-06] MEDS: Pantoprazole VIAL 40 MG VIAL IV SCH ×2 (08:25→21:11)
[2020-12-06] MEDS: Polyethylene Glycol 3350 17 GM PACKET PO SCH (08:25)
[2020-12-06 09:09] LABS: Hematocrit 22 % (42-52); Hemoglobin 7.2 g/dL (14.0-18.0); Mean Corpuscular HGB Conc 33 g/dL (31-36); Mean Corpuscular Hemoglobin 29 pg (27-31); Mean Corpuscular Volume 87 fL (80-94); Platelet Count 142 10^3/uL (150-450); Red Cell Distribution Width 16 % (10-15); White Blood Count 14.1 10^3/uL (3.5-10.8)
[2020-12-06 09:27] LABS: Calcium 8.5 mg/dL (8.6-10.3); EGFR African American 9.5 (>60); EGFR Non-African American 7.8 (>60); Magnesium 3.5 mg/dL (1.9-2.7); Phosphorus 12.5 mg/dL (2.5-5.0)
[2020-12-06 09:45] LABS: Potassium 6.5 mmol/L (3.5-5.0)
[2020-12-06] MEDS ORDERED: Sodium Polystyrene ORAL.SUSP 15 GM/60 ML BTL NG TUBE ONE (09:57)
[2020-12-06] MEDS ORDERED: Calcium Gluconate 2 GM in NS 0.9% 100 ml BAG 100 ML IVPB ONE (10:00)
[2020-12-06] MEDS ORDERED: SODIUM ZIRCONIUM CYCLOSILICATE 10 GM PACKET PO SCH ×2 (10:00→14:00)
[2020-12-06] MEDS: Saline FLUSH-CENTRAL 10 ML SYRINGE CENT\\PICC SCH ×2 (10:17→21:12)
[2020-12-06 10:19] LABS: PCO2 Arterial 71 mmHg (35-45); PO2 Arterial 70 mmHg (80-100)
[2020-12-06] MEDS: Acetylcysteine INHALATION SOL 200 MG/ML NEB.SOLN 10 ML INH PRN ×2 (14:20→17:34)
[2020-12-06] MEDS: Albuterol 2.5mg/3 ml (0.083%) NEB.SOLN INH PRN ×2 (14:21→17:34)
[2020-12-06] MEDS ORDERED: Sodium Bicarb 8.4% Vial 50 ML 150 MEQ in D5W 1000 ml BAG 850 ML IV ONE (15:00)
[2020-12-06 15:53] LABS: Albumin 2.9 g/dL (3.2-5.2); Calcium 8.4 mg/dL (8.6-10.3); EGFR Non-African American 7.4 (>60); Magnesium 3.6 mg/dL (1.9-2.7); Phosphorus 13.1 mg/dL (2.5-5.0); Total Protein 5.8 g/dL (6.4-8.9)
[2020-12-06 15:54] LABS: Globulin 2.9 g/dL (2-4); Total Bilirubin 0.4 mg/dL (0.2-1.0)
[2020-12-06 15:59] LABS: Potassium 6.5 mmol/L (3.5-5.0)
[2020-12-06] MEDS ORDERED: Saline FLUSH-CENTRAL 10 ML SYRINGE CENT\\PICC SCH (16:00)
[2020-12-07] MEDS: Chlorhexidine MOUTHWASH 0.12% 15 ML UDC TOPICAL SCH ×6 (03:47→21:59)
[2020-12-07] MEDS: Artificial Tear OPHTH.OINT 3.5 GM BOTH EYES SCH ×6 (03:47→21:59)
[2020-12-07 04:57] LABS: Hematocrit 21 % (42-52); Hemoglobin 6.8 g/dL (14.0-18.0); Mean Corpuscular HGB Conc 32 g/dL (31-36); Mean Corpuscular Hemoglobin 29 pg (27-31); Mean Corpuscular Volume 88 fL (80-94); Mean Platelet Volume 7.8 fL (7.4-10.4); Platelet Count 138 10^3/uL (150-450); Red Blood Count 2.38 10^6 /uL (4.18-5.48); Red Cell Distribution Width 17 % (10-15); White Blood Count 12.9 10^3/uL (3.5-10.8)
[2020-12-07 05:10] LABS: Calcium 7.5 mg/dL (8.6-10.3); EGFR African American 7.1 (>60); EGFR Non-African American 5.8 (>60)
[2020-12-07 05:13] LABS: Potassium 5.4 mmol/L (3.5-5.0)
[2020-12-07 05:25] LABS: ABS Basophils 0.1 10^3/ul (0-0.2); ABS Lymphocytes 0.6 10^3/ul (1.0-4.8); ABS Monocytes 0.6 10^3/ul (0-0.8); ABS Neutrophils 11.6 10^3/ul (1.5-7.7); Lymphocyte % 4.5 %; Nucleated Red Blood Cells % 0.3
[2020-12-07] MEDS: Heparin 5000 UNITS/ML 1 mL VIAL SUBCUT SCH ×3 (06:35→21:59)
[2020-12-07 09:11] LABS: Magnesium 3.6 mg/dL (1.9-2.7); Phosphorus 13.1 mg/dL (2.5-5.0)
[2020-12-07] MEDS: Pantoprazole VIAL 40 MG VIAL IV SCH ×2 (09:20→21:59)
[2020-12-07] MEDS: Polyethylene Glycol 3350 17 GM PACKET PO SCH (09:20)
[2020-12-07] MEDS: Saline FLUSH-CENTRAL 10 ML SYRINGE CENT\\PICC SCH ×2 (09:21→21:59)
[2020-12-07] MEDS ORDERED: Norepinephrine 16MCG/ML IVPRE 4,000 MCG/250 ML BAG IV ONE (09:55)
[2020-12-07] MEDS: Heparin 1,000 UNIT/ML 10 ml (10,000 UNITS) CATHLAB/DIALYSIS DIALYSIS PRN ×5 (10:04→13:50)
[2020-12-07] MEDS: Norepinephrine 16MCG/ML IVPRE 4,000 MCG/250 ML BAG IV SCH (10:05)
[2020-12-07 13:38] LABS: Hematocrit 29 % (42-52); Hemoglobin 9.4 g/dL (14.0-18.0)
[2020-12-07 18:34] LABS: PCO2 Arterial 65 mmHg (35-45); PO2 Arterial 73 mmHg (80-100)
[2020-12-07] MEDS ORDERED: Morphine 2 MG/ML SYRINGE IV ONE (23:24)
[2020-12-08] MEDS: Chlorhexidine MOUTHWASH 0.12% 15 ML UDC TOPICAL SCH ×6 (03:09→21:13)
[2020-12-08] MEDS: Artificial Tear OPHTH.OINT 3.5 GM BOTH EYES SCH ×6 (03:09→21:13)
[2020-12-08] MEDS: Norepinephrine 16MCG/ML IVPRE 4,000 MCG/250 ML BAG IV SCH (03:18)
[2020-12-08 04:31] LABS: Hematocrit 24 % (42-52); Hemoglobin 7.9 g/dL (14.0-18.0); Mean Corpuscular HGB Conc 33 g/dL (31-36); Mean Corpuscular Hemoglobin 29 pg (27-31); Mean Corpuscular Volume 88 fL (80-94); Mean Platelet Volume 7.7 fL (7.4-10.4); Platelet Count 157 10^3/uL (150-450); Red Blood Count 2.75 10^6 /uL (4.18-5.48); Red Cell Distribution Width 16 % (10-15)
[2020-12-08 04:46] LABS: Calcium 7.5 mg/dL (8.6-10.3); EGFR African American 11.6 (>60); EGFR Non-African American 9.6 (>60); Magnesium 2.8 mg/dL (1.9-2.7); Phosphorus 10.3 mg/dL (2.5-5.0)
[2020-12-08 04:48] LABS: ABS Basophils 0.1 10^3/ul (0-0.2); ABS Lymphocytes 0.5 10^3/ul (1.0-4.8); ABS Monocytes 0.7 10^3/ul (0-0.8); ABS Neutrophils 12.7 10^3/ul (1.5-7.7); ABS Nucleated RBC 0.1 10^3/ul; Lymphocyte % 3.7 %; Nucleated Red Blood Cells % 0.7
[2020-12-08 04:49] LABS: Basophilic Stippling 2+; Polychromasia 1+
[2020-12-08] MEDS: Heparin 5000 UNITS/ML 1 mL VIAL SUBCUT SCH ×3 (05:37→21:13)
[2020-12-08] MEDS: Heparin 1,000 UNIT/ML 10 ml (10,000 UNITS) CATHLAB/DIALYSIS DIALYSIS PRN ×5 (06:31→10:14)
[2020-12-08] MEDS: Pantoprazole VIAL 40 MG VIAL IV SCH ×2 (08:48→21:13)
[2020-12-08] MEDS: Polyethylene Glycol 3350 17 GM PACKET PO SCH (08:48)
[2020-12-08] MEDS: Saline FLUSH-CENTRAL 10 ML SYRINGE CENT\\PICC SCH ×2 (10:25→21:13)
[2020-12-08] MEDS: Lactulose 30 ml UDC PO SCH (21:13)
[2020-12-09] MEDS: Artificial Tear OPHTH.OINT 3.5 GM BOTH EYES SCH ×6 (03:10→22:48)
[2020-12-09] MEDS: Chlorhexidine MOUTHWASH 0.12% 15 ML UDC TOPICAL SCH ×6 (03:10→22:48)
[2020-12-09 04:02] LABS: ABS Eosinophils 0.1 10^3/ul (0-0.6); ABS Lymphocytes 0.7 10^3/ul (1.0-4.8); ABS Monocytes 0.7 10^3/ul (0-0.8); ABS Neutrophils 9.5 10^3/ul (1.5-7.7); ABS Nucleated RBC 0.1 10^3/ul; Eosinophil % 0.9 %; Hematocrit 24 % (42-52); Lymphocyte % 6.6 %; Mean Corpuscular HGB Conc 34 g/dL (31-36); Mean Corpuscular Hemoglobin 29 pg (27-31); Mean Corpuscular Volume 86 fL (80-94); Mean Platelet Volume 7.7 fL (7.4-10.4); Platelet Count 160 10^3/uL (150-450); Red Blood Count 2.76 10^6 /uL (4.18-5.48); Red Cell Distribution Width 16 % (10-15); White Blood Count 11.1 10^3/uL (3.5-10.8)
[2020-12-09 04:18] LABS: Calcium 7.8 mg/dL (8.6-10.3); EGFR African American 14.3 (>60); EGFR Non-African American 11.8 (>60); Magnesium 2.6 mg/dL (1.9-2.7); Phosphorus 8.8 mg/dL (2.5-5.0); Potassium 4.7 mmol/L (3.5-5.0)
[2020-12-09] MEDS: Heparin 5000 UNITS/ML 1 mL VIAL SUBCUT SCH ×3 (05:56→22:39)
[2020-12-09] MEDS: Heparin 1,000 UNIT/ML 10 ml (10,000 UNITS) CATHLAB/DIALYSIS DIALYSIS PRN ×4 (06:58→09:54)
[2020-12-09] MEDS: Lactulose 30 ml UDC PO SCH ×4 (10:21→22:48)
[2020-12-09] MEDS: Pantoprazole VIAL 40 MG VIAL IV SCH ×2 (10:21→22:39)
[2020-12-09] MEDS: Saline FLUSH-CENTRAL 10 ML SYRINGE CENT\\PICC SCH ×2 (10:22→22:49)
[2020-12-09] MEDS: Polyethylene Glycol 3350 17 GM PACKET PO SCH (10:22)
[2020-12-09 11:44] LABS: Albumin 3.1 g/dL (3.2-5.2); Albumin/Globulin Ratio 1.1 (1-3); Direct Bilirubin 0.1 mg/dL (0.03-0.18); Globulin 2.8 g/dL (2-4); Indirect Bilirubin 0.4 mg/dL (0.3-1.0); Total Bilirubin 0.5 mg/dL (0.2-1.0); Total Protein 5.9 g/dL (6.4-8.9)
[2020-12-09] MEDS: Norepinephrine 16MCG/ML IVPRE 4,000 MCG/250 ML BAG IV SCH (11:48)
[2020-12-10] MEDS: Artificial Tear OPHTH.OINT 3.5 GM BOTH EYES SCH ×6 (02:11→20:49)
[2020-12-10] MEDS: cefTRIAXone 1 gm/50 mL NS BAG 1 GM/50 ML BAG IVPB SCH ×2 (02:11→21:00)
[2020-12-10] MEDS: Chlorhexidine MOUTHWASH 0.12% 15 ML UDC TOPICAL SCH ×6 (02:11→20:49)
[2020-12-10 05:50] LABS: Hematocrit 25 % (42-52); Hemoglobin 8.1 g/dL (14.0-18.0); Mean Corpuscular HGB Conc 33 g/dL (31-36); Mean Corpuscular Hemoglobin 29 pg (27-31); Mean Corpuscular Volume 88 fL (80-94); Mean Platelet Volume 7.3 fL (7.4-10.4); Platelet Count 188 10^3/uL (150-450); Red Blood Count 2.78 10^6 /uL (4.18-5.48); Red Cell Distribution Width 17 % (10-15); White Blood Count 12.9 10^3/uL (3.5-10.8)
[2020-12-10 06:12] LABS: Calcium 7.8 mg/dL (8.6-10.3); EGFR African American 13.8 (>60); EGFR Non-African American 11.4 (>60)
[2020-12-10 06:22] LABS: Potassium 5.1 mmol/L (3.5-5.0)
[2020-12-10] MEDS: Heparin 5000 UNITS/ML 1 mL VIAL SUBCUT SCH ×3 (06:43→20:49)
[2020-12-10] MEDS: Norepinephrine 16MCG/ML IVPRE 4,000 MCG/250 ML BAG IV SCH ×4 (06:45→20:24)
[2020-12-10 06:47] LABS: Basophilic Stippling 3+
[2020-12-10 06:48] LABS: ABS Basophils 0.1 10^3/ul (0-0.2); ABS Lymphocytes 0.8 10^3/ul (1.0-4.8); ABS Monocytes 0.3 10^3/ul (0-0.8); ABS Neutrophils 11.6 10^3/ul (1.5-7.7); ABS Nucleated RBC 0.4 10^3/ul; Anisocytosis 2+; Eosinophil % 0.1 %; Lymphocyte % 6.6 %; Nucleated Red Blood Cells % 2.8; Polychromasia 2+
[2020-12-10] MEDS: Heparin 1,000 UNIT/ML 10 ml (10,000 UNITS) CATHLAB/DIALYSIS DIALYSIS PRN ×5 (07:46→11:13)
[2020-12-10] MEDS: Polyethylene Glycol 3350 17 GM PACKET PO SCH (08:10)
[2020-12-10] MEDS ORDERED: Ondansetron 4 mg VIAL 2 MG/ML 2 ml VIAL ONE (09:32)
[2020-12-10] MEDS: Pantoprazole VIAL 40 MG VIAL IV SCH ×2 (10:15→20:49)
[2020-12-10] MEDS: Lactulose 30 ml UDC PO SCH ×4 (10:15→20:49)
[2020-12-10] MEDS: Saline FLUSH-CENTRAL 10 ML SYRINGE CENT\\PICC SCH ×2 (10:16→20:49)
[2020-12-11] MEDS: Norepinephrine 16MCG/ML IVPRE 4,000 MCG/250 ML BAG IV SCH ×3 (01:15→12:29)
[2020-12-11] MEDS: Chlorhexidine MOUTHWASH 0.12% 15 ML UDC TOPICAL SCH ×4 (03:41→13:26)
[2020-12-11] MEDS: Artificial Tear OPHTH.OINT 3.5 GM BOTH EYES SCH ×4 (03:41→13:27)
[2020-12-11] MEDS: Heparin 5000 UNITS/ML 1 mL VIAL SUBCUT SCH ×2 (05:34→13:26)
[2020-12-11] MEDS: Polyethylene Glycol 3350 17 GM PACKET PO SCH (08:19)
[2020-12-11] MEDS: Pantoprazole VIAL 40 MG VIAL IV SCH (08:19)
[2020-12-11] MEDS: Lactulose 30 ml UDC PO SCH ×2 (08:19→13:26)
[2020-12-11] MEDS: Saline FLUSH-CENTRAL 10 ML SYRINGE CENT\\PICC SCH (10:11)
[2020-12-11 10:34] LABS: Hematocrit 21 % (42-52); Mean Corpuscular HGB Conc 33 g/dL (31-36); Mean Corpuscular Hemoglobin 29 pg (27-31); Mean Corpuscular Volume 87 fL (80-94); Mean Platelet Volume 7.4 fL (7.4-10.4); Platelet Count 149 10^3/uL (150-450); Red Blood Count 2.43 10^6 /uL (4.18-5.48); Red Cell Distribution Width 16 % (10-15); White Blood Count 9.9 10^3/uL (3.5-10.8)
[2020-12-11 10:45] LABS: Calcium 8.4 mg/dL (8.6-10.3); EGFR African American 14.4 (>60); EGFR Non-African American 11.9 (>60); Potassium 3.8 mmol/L (3.5-5.0)
[2020-12-11 11:12] LABS: Anisocytosis 1+; Basophilic Stippling 3+
[2020-12-11 11:14] LABS: Polychromasia 1+
[2020-12-11] MEDS ORDERED: Morphine PCA ADULT 5 MG/ML 30 ML PCA SCH ×2 (13:30→14:45)
[2020-12-11] MEDS ORDERED: LORazepam 2 mg VIAL 1 ml IV PUSH SCH (15:00)
[2020-12-11 16:27] VITALS: BP 96/46
== END 2020-12-11 15:45 | disposition expired | DRG 951 ==
LOC: ED 18:07 → ICU 21:42
PROVIDERS: ADMIT Internal Medicine; ATTEND Internal Medicine